=== PATIENT | female | born 1965 | race Caucasian/White ===

== ENCOUNTER → 2019-04-21 12:46 | Outpatient (CLI) | payer OTHER, SELFPAY ==
--- NOTE | 2019-04-28 08:59 | PM.PFT.1 ---
Pulmonary Function Test Referral & Results Date Patient Seen: 04/21/19 Requesting provider: Judi Breen Results: The spirometry demonstrates an FVC of 2.99 L which is 90% of predicted. The FEV1 was measured at 2.44 L which is 94% of predicted. The FEV1/FVC ratio was 82 which is 102% of predicted. Following the administration of bronchodilator there was no appreciable change to above normal numbers. Lung volumes show an SVC of 2.74 L which is 89% of predicted. The diffusing capacity was measured at 17.35 which is 78% of predicted. No hemoglobin value was provided, so no correction for potential anemia could be made, if appropriate. The maximum voluntary ventilation was reduced but it appears patient had difficulty cooperating with this portion of the exam Interpretation: This study is probably normal. Certainly patient has normal spirometry there may be very minimal reduction in diffusing capacity. Overall however I would think this is a normal study with normal pulmonary function. Clinical correlation suggested
== END ==
PROVIDERS: PCP Nurse Practitioner Family; Referring Provider Specialist; Visit Provider Specialist
DX: J41.1 Mucopurulent chronic bronchitis (principal); Z87.891 Personal history of nicotine dependence
CPT/HCPCS: 94060; 94726; 94729

== ENCOUNTER → 2019-07-26 14:13 | Outpatient (CLI) | payer OTHER, SELFPAY ==
--- NOTE | 2019-07-26 | DI.ECHO.S_ITS ---
[place]---------+ [facility] +---------+ : : [address] : [address] [place] : : : : [id number] : : : : Phone: [phone]+ Echocardiogram Report + + :Name: VERITO CARDONA Study Date: 07/26/2019 Height: 62 in : :[facility] Weight: 180 lb : : Gender: Female BSA: 1.8 m2 : :: 1965 Age: 53 yrs BP: 144/78 mmHg: :Reason For Study: DYSPNEA : : Performed By: Delilah Villalobos : + + Interpretation Summary 1) Normal left ventricular thickness, size, wall motion, and systolic function (EF 55-60%). 2) Grossly, normal right ventricular size and function. 3) No significant valvular abnormalities. 4) Pulmonary artery pressures cannot be estimated because of the lack of a measurable TR jet velocity. 5) No prior Echo available for comparison. Ordering Doctor: Judi Breen Primary Care Doctor Dr. Ramirez, [facility] Fax: Procedure: A two-dimensional transthoracic echocardiogram with color flow and Doppler was performed. The study quality was technically adequate. There is no prior echocardiogram noted for this patient. Left Ventricle: The left ventricle is normal in size and wall thickness. The ejection fraction is estimated to be 55-60%. Left ventricular systolic function is normal without focal wall motion abnormalities. Diastolic parameters suggest probable normal left ventricular diastolic function and normal filling pressures. Right Ventricle: The right ventricle grossly appears normal in size with probable normal systolic function. Atria: Both atria are normal in size. There is no Doppler evidence for an interatrial shunt. Mitral Valve: The mitral valve is normal in structure and function. There is no mitral regurgitation noted. Aortic Valve: The aortic valve is not well visualized. The aortic valve is grossly normal. The aortic valve opens well. There is no aortic valve stenosis. No aortic regurgitation is present. Tricuspid Valve: The tricuspid valve is normal in structure and function. There is a trace or physiologic amount of tricuspid regurgitation. Pulmonary artery pressures cannot be estimated because of the lack of a measurable TR jet velocity. Pulmonic Valve: The pulmonic valve is normal in structure and function. There is no pulmonic valvular regurgitation. Great Vessels: The aortic root is normal size. The ascending aorta is normal in size. The inferior vena cava was not well visualized. Pericardium/ Pleura There is an anterior echo-free space consistent with a fat pad. There is no pleural effusion. MMode/2D Measurements & Calculations LVIDd: 4.5 cm LVOT diam: 2.0 cm LVIDs: 3.4 cm Ao root diam: 2.8 cm FS: 24.9 % asc Aorta Diam: 3.0 cm EPSS: 0.98 cm Ao Arch Diam (Prox Trans): 3.0 cm IVSd: 0.79 cm LVPWd: 0.80 cm LV christensen. diameter/BSA (cm/m^2): 2.5 LV sys. diameter/BSA (cm/m^2): 1.9 LA A2 area: 12.6 cm2 RA long axis: 4.4 cm LA A4 area: 11.0 cm2 RA area: 9.4 cm2 LA length (vol): 4.3 cm RA vol: 16.9 ml LA vol: 27.3 ml RA : 9.3 ml/m2 LA vol index: 14.9 ml/m2 RVD1 (basal): 3.6 cm TAPSE: 1.8 cm Doppler Measurements & Calculations Ao V2 max: 153.1 cm/sec LVOT Max Mayco: 75.0 cm/sec Ao V2 mean: 107.3 cm/sec LV V1 max P.2 mmHg Ao max P.4 mmHg LV V1 VTI: 13.1 cm Ao mean P.2 mmHg TAYLOR(I,D): 1.7 cm2 Ao V2 VTI: 25.1 cm TAYLOR(V,D): 1.6 cm2 sev ratio: 0.52 TAYLOR indexed to BSA (cm^2/m^2): 0.94 MV E max mayco: 54.2 cm/sec PA V2 max: 68.6 cm/sec MV A max mayco: 94.1 cm/sec PA V2 mean: 43.7 cm/sec MV E/A: 0.58 PA mean P.92 mmHg Med Peak E' Mayco: 4.2 cm/sec E/E' med: 12.9 Lat Peak E' Mayco: 4.8 cm/sec E/E' lat: 11.3 E/e' average: 12.1 MV dec time: 0.22 sec SV(LVOT): 43.1 ml Reading Physician:05:05 PM
== END ==
PROVIDERS: PCP Nurse Practitioner Family; Referring Provider Specialist; Visit Provider Specialist
DX: R06.09 Other forms of dyspnea (principal)
CPT/HCPCS: 93306